=== PATIENT | female | born 1945 | race Caucasian/White ===

== ENCOUNTER 2018-11-11 09:51 | Emergency (ER) | payer OTHER, MEDICAID ==
[2018-11-11] MEDS: DEXAMETHASONE 10 MG/ML 1 ML INJ IM (10:31)
== END 2018-11-11 11:24 | disposition home or self-care (01) ==
LOC: FTE 09:51
DX: R21 Rash and other nonspecific skin eruption (principal); I10 Essential (primary) hypertension
CPT/HCPCS: 96372; 99284-25; J1100